=== PATIENT | male | born 1945 | race Caucasian/White ===

== ENCOUNTER 2024-12-18 13:34 | Outpatient (AMB) | payer MEDICARE, SELFPAY ==
--- OUTSIDE RECORDS SUMMARY | 2024-12-13 16:00 | XMS_ITS | Encounter Summary ---
Author Organization [facility] Address [address] [place] [address] Care Team Providers Care Automotive Maintenance Technician Name Role Phone Estefania Lozano MD Primary Care Provider [phone] Reason for Visit * Reason Comments Pulmonary Fibrosis 6 mth f/u Pulmonary Fibrosis Encounter Details Date Type Department Care Team (Late st Contact Info) Description 12/13/2024 4:00 PM EDT Office Visit Pulmonolgy [place] [address] [place] [address] Raghu Kunz MD [address] [place] [address] Pulmonary fibrosis (CMS/HCC V24, CMS/HCC V28) (Primary Dx); CAROLYN (obstructive sleep apnea); Severe aortic stenosis Social History Tobacco Use Types Packs/Day Years Used Date Smoking Tobacco: Former Smokeless Tobacco: Never Alcohol Use Standard Drinks/Week Comments Not Currently 0 (1 standard drink = 0.6 oz pur e alcohol) Sex and Gender Information Value Date Recorded Sex Assigned at Male 06/27/2024 9:52 AM EDT Legal Sex Male 11:16 PM EST Gender Identity Male 06/27/2024 9:52 AM EDT Sexual Orientation Straight 06/27/2024 9: 52 AM EDT documented as of this encounter Last Filed Vital Signs Vital Sign Reading Time Taken Comments Blood Pressure 120/64 12/13/2024 4:10 PM EDT Pulse 56 12/13/2024 4:10 PM EDT Temperature 36.3 C (97.4 F) 12/13/2024 4:10 PM EDT Respiratory Rate 16 12/13/2024 4:10 PM EDT Oxygen Saturation 98% 12/13/2024 4:10 PM EDT Inhaled Oxygen Concentration - - Weight - - Height - - Body Mass Index - - documented in this encounter Progress Notes * Raghu Kunz MD - 12/13/2024 4:00 PM EDT ADULT PULMONARY CONSULT CHIEF COMPLAINT or REASON FOR CONSULTATION: Pulmonary Fibrosis (6 mth f/u Pulmonary Fibrosis) HISTORY OF PRESENT ILLNESS: Aydin Bonilla is a 79 y.o. years old, male with a history of lung scarring and sleep apnea. He reports no significant change in his condition compared to the previous year, maintaining a general sense of well-being. He has no chronic cough or wheezing. Activities limited by general was debility with knee pain rather then SOB. I last saw him 6 months ago, he had a repeat chest CT scan thatshows stable findings. The patient is generally doing a lot better since he had a the significant weight loss with the Ozempic ALLERGIES: Allergies Allergen Reactions Amoxicillin Swelling Quinapril Swelling ACTIVE MEDICATIONS: Outpatient Medications Marked as Taking for the 12/13/24 encounter (Office Visit) with Raghu Kunz MD Medication Sig Dispense Refill acetaminophen-codeine (TYLENOL #3) 300-30 mg per tablet Take 1 tablet by mouth 1 (one) time each day if needed for severe pain. Max Daily Amount: 1 tablet 5 tablet 0 amLODIPine (NORVASC) 5 mg tablet Take 1 tablet (5 mg total) by mouth 1 (one) time each day. 90 tablet 1 aspirin 81 mg EC tablet Take 1 tablet (81 mg total) by mouth 1 (one) time each day. atorvastatin (LIPITOR) 40 mg tablet Take 1 tablet (40 mg total) by mouth 1 (one) time each day. 90 each 1 blood sugar diagnostic (FreeStyle Lite Strips) test strip TEST BLOOD GLUCOSE EVERY DAY 100 strip 0 blood-glucose meter kit Inject 1 each into the skin 2 (two) times a day. CHOLECALCIFEROL, VITAMIN D3, ORAL Take by mouth 1 (one) time each day. cyanocobalamin (VITAMIN B-12) 1,000 mcg tablet Take 1 tablet (1,000 mcg total) by mouth 1 (one) time each day. donepeziL (ARICEPT) 10 mg tablet Take 1 tablet (10 mg total) by mouth 1 (one) time each day. ferrous sulfate (FeroSuL) 325 mg (65 mg elemental iron) tablet Take 1 tablet (325 mg total) by mouth 1 (one) time each day. 90 tablet 1 folic acid (FOLVITE) 1 mg tablet Take 1 tablet (1,000 mcg total) by mouth 1 (one) time each day. 90tablet 1 freestyle (FreeStyle Lancets) 28 gauge lancets Inject 1 Lancet into the skin once a day. Freestyle lancets or whichever is covered by insurance 100 each 3 memantine (NAMENDA) 10 mg tablet Take 1 tablet (10 mg total) by mouth 2 (two) times a day. metoprolol succinate (TOPROL-XL) 25 mg 24 hr tablet TAKE 1 TABLET BY MOUTH DAILY 90 tablet 1 pen needle, diabetic 32 gauge x 5/32 needle 1 each by Other route 1 (one) time each day. semaglutide (Ozempic) 1 mg/dose (4 mg/3 mL) injection pen Inject 1 mg under the skin 1 (one) time per week. 9 mL 1 UNABLE TO FIND Inhale by mouth. Med Name: CPAP UNABLE TO FIND by Other route 2 (two) times a day. Med Name: FreeStyle Control Solution PROVIDER ATTESTS THAT THE MEDICATION LIST WAS OBTAINED, REVIEWED AND UPDATED. REVIEW OF SYSTEMS: GENERAL: + 100 lb less in past few yr ENT: no snoring Eye: RESPIRATORY: + cough, wheezing and dyspnea CARDIOVASCULAR: No chest pain, leg swelling or palpitations GI: No abdominal discomfort, no GERD MUSCULOSKELETAL: +backpain, + knee pain HEMATOLOGY/LYMPHOLOGY No prolonged bleeding, easy bruisability ENDOCRINE: no DM NEURO: No focal weakness : Psych: no depression PAST MEDICAL HISTORY: Patient Active Problem List Diagnosis Date Noted CKD (chronic kidney disease) stage 4, GFR 15-29 ml/min ([facility] V24, [facility] V28) 10/17/2024 Spondylosis of lumbar region without myelopathy or radiculopathy 01/28/2024 HTN (hypertension) 01/28/2024 Pulmonary fibrosis (CMS/[facility] V24, CMS/[facility] V28) 06/14/2023 CKD (chronic kidney disease) stage 3, GFR 30-59 ml/min ([facility] V24, [facility] V28) 06/14/2023 Mild cognitive impairment 12/04/2022 Other specified anemias 01/09/2022 Anemia in chronic kidney disease 12/23/2021 Thoracic aortic aneurysm without rupture ([facility] V24) 12/11/2020 PLMD (periodic limb movement disorder) 11/06/2018 Microalbuminuria 07/01/2018 Benign prostatic hyperplasia 12/28/2017 Lumbar spondylosis 10/21/2017 Primary osteoarthritis of both knees 10/21/2017 Depressive disorder 10/04/2017 Morbid obesity ([facility] V24, [facility] V28) 05/27/2017 Obstructive sleep apnea syndrome 05/27/2017 Severe aortic stenosis 05/27/2017 Hyperlipidemia 05/06/2017 Polyarthralgia 05/06/2017 Type 2 diabetes mellitus without complication ([facility] V24, [facility] V28) 04/01/2017 Type 2 diabetes mellitus with renal manifestations ([facility] V24, [facility] V28) 04/01/2017 Past Surgical History: Procedure Laterality Date OTHER SURGICAL HISTORY PROCEDURE: HISTORICAL MELANOMA FAMILY HISTORY: Family History Problem Relation Name Age of Onset Arthritis Mother Arthritis Brother OCCUPATION OR OCCUPATION EXPOSURE: SOCIAL HISTORY Social History Socioeconomic History Marital status: Spouse name: Not on file Number of children: Not on file Years of education: Not on file Highest education level: Not on file Occupational History Not on file Tobacco Use Smoking status: Former Smokeless tobacco: Never Substance and Sexual Activity Alcohol use: Not Currently Drug use: Never Sexual activity: Not on file Other Topics Concern Not on file Social History Narrative IMMUNIZATION: Immunization History Administered Date(s) Administered COVID-19 (Pfizer/Comirnaty) 12yo and older 02/05/2024 Influenza Quadravalent, 0.5ml (Fluzone High-dose) 65yo and older 01/10/2021 Influenza trivalent, 0.5mL (Fluzone High-dose) 65yo and older 12/23/2016, 01/24/2020, 01/02/2022, 02/16/2023 Influenza, Unspecified 01/10/2021 simplifyMD SARS-CoV-2 COVID-19, mRNA, LNP-S, preservative free 05/19/2020, 06/10/2020, 01/10/2021, 08/01/2021, 01/20/2022 Pneumococcal conjugate 13 valent (Prevnar 13, PCV13) 2mo and older 06/29/2018 Pneumococcal polysaccharide 23 valent (Pneumovax 23) 2yo and older 12/19/2019 Tdap Tetanus diptheria acellular pertussis (Boostrix; Adacel) 7yo and older 06/29/2018 PHYSICAL EXAM: Visit Vitals BP 120/64 (BP Location: Left arm, Patient Position: Sitting, BP Cuff Size: Adult) Pulse 56 Temp 36.3 ??C (97.4 ??F) (Temporal) Resp 16 SpO2 98% Smoking Status Former General- looks older then his stated age- in walker with , obese Heent- no JVD or stridor EYES: PERRL, conjunctiva and sclera normal NOSE/SINUS: negative MOUTH/THROAT: no erythema or exudates NECK: no stridor HEART: regular rate, regular rhythm and 3+ murmur LUNG: slight crackle at bases LYMPH NODES: grossly normal ABDOMEN: Bowel sounds normoactive, no bruits, soft, non-tender EXTREMITIES: No edema bilaterally. No clubbing NEURO: Awake, alert and oriented x 3 SKIN: negative DIAGNOSTIC DATA: 0219 best BIPAP 13/8 CARDIOPULMONARY TEST: Last Pulmonary function Test showed: 11/19/2023 Spirometry FEV1 is 90% normal, FVC 68% normal, FEV1/FVC ratio is decreased, no improvement in FEV1 post bronchodilators, MVV is decreased at 44% predicted. Lung volume TLC 62% normal, RV is 56% normal. Diffusion DLCO is 51% normal, DLCO/VA is 96% normal. RADIOLOGIST IMAGIN07/2024 FINDINGS: Base of neck: The thyroid and base of the neck are within normal limits. Mediastinum: The heart is normal in size, small pericardial effusion. No mediastinal lymphadenopathy. Thoracic aorta measures 4.2 cm at the right pulmonary artery. Moderate atherosclerosis of the thoracic aorta. Lungs: Evaluation of the lung parenchyma demonstrates diffuse subpleural fine linear interstitial thickening throughout the lung parenchyma. Probable small areas of honeycombing within the lateral right middle lobe and anterolateral/posterior right lower lobe. Faint groundglass attenuation in the medial right middle lobe. Mild diffuse traction bronchiectasis throughout the lung parenchyma. Scattered 1 to 2 mm pulmonary nodules. The trachea and mainstem bronchi are patent. Upper Abdomen: Limited visualization of the extreme upper abdomen demonstrates a right upper pole 3.5 cm renal cyst. Right midpole 1.8 cm cyst. MSK: Soft tissues are normal. Moderate degenerative changes of the thoracic spine. IMPRESSION: 1. 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 2. Thoracic aorta is aneurysmal measuring 4.2 cm. ASSESSMENT: ICD-10-CM ICD-9-CM 1. Pulmonary fibrosis (CMS/HCC V24, CMS/HCC V28) J84.10 515 2. CAROLYN (obstructive sleep apnea) G47.33 327.23 PLAN: Main limiting factor is knee pain. The repeat chest CT scan shows stable fibrosis. The patient has no clubbing and given the stability, this is unlikely to be IPF. Treatment is mostly supportive. Thepatient will follow-up in 6 months, he is compliant with CPAP and cardiology following him for his moderate to severe aortic stenosis - Follow up with Estefania Lozano MD for the other co-morbilities. - I spend 31 Minutes on this visit. The patient was educated about his problems, where assessment and plan was reviewed and explained, All questions were answered. This includes: Preparing to see the patient, obtaining and/or reviewing separately obtained history, performing a medically appropriate exam, ordering medications, tests, or procedures, documenting clinical information in the electronic health record, and independently interpreting results. RETURN TO THE NEXT VISIT: Based on physical exam, symptomatology, tests requested and baseline pulmonary evaluation/disease, I instructed the patient to come back to see me in 6 mths for reevaluation after the test has been done or earlier if the patient needed. Thanks Estefania Lozano MD for allowing me to have the opportunity to assist in the care of this patient. documented in this encounter Plan of Treatment Upcoming Encounters Date Type Department Care Team (Late st Contact Info) Description 02/01/2025 3:00 PM EDT Office Visit Orthopedic Surgery - [place] [address] [phone] Gopi Bueno, DPM [address] [address] 02/12/2025 3:30 PM EST Ancillary Procedure [facility] [address] [place] [address] 02/14/2025 9:50 AM EST Office Visit Gastroenterology - [place] [address] [place] [address] Libby Andrade PA [address] [place] [address] 03/06/2025 1:10 PM EST Office Visit [facility] Card[facility] [address] [place] [address] Jorge Delgadillo NP [address] [place] [address] [address] [place] [address] 03/12/2025 8:30 AM EST Ancillary Procedure [facility] Cardiology [facility] [address] [place] [address] 03/19/2025 10:00 AM EST Ancillary Procedure [facility] [address] [place] [address] 05/04/2025 1:00 PM EST Office Visit Vascular Surgery - [place] [address] [place] [address] Mihir Bonilla MD [address] [place] [phone] 05/10/2025 12:00 PM EST Office Visit Internal Medicine - [address] [phone] Estefania Lozano MD [address] [place] [address] 06/13/2025 2:30 PM EST Office Visit Pulmonolgy - [place] [address] [place] [phone] Raghu Kunz MD [address] [facility] [address] [place] [address] 07/24/2025 2:15 PM EDT Office Visit Nephrology - [facility] [address] [place], [place] [phone] Celio Tipton MD [address] [address] documented as of this encounter Visit Diagnoses Diagnosis Pulmonary fibrosis (CMS/HCC V24, CMS/HCC V28)- Primary Postinflammatory pulmonary fibrosis CAROLYN (obstructive sleep apnea) Obstructive sleep apnea (adult) (pediatric) Severe aortic stenosis Aortic valve disorders documented in this encounter Care Teams Automotive Maintenance Technician Relationship Specialty Start Date End Date Estefania Lozano MD [address] [facility] [place], [place] PCP - General Internal Medicine 11/07/24 documented as of this encounter
--- NOTE | 2024-12-18 13:37 | A.OFFVIS_ITS ---
Vital Signs 12/18/24 13:45 Height 5 ft 6 in Weight 190 lb BMI 30.7 BP 126/78 Blood Pressure Location Lt brachial Position Sitting Intake Visit Reasons: Follow up, Follow Up Accompanied by: Spouse Allergies amoxicillin Allergy (Unknown, Verified 12/18/24 13:42) Unknown Medication List - Last Reconciled 12/18/24 by Kiera Guadalupe CNP amlodipine 5 mg PO DAILY atorvastatin 40 mg PO DAILY donepezil 10 mg PO DAILY folic acid 1 mg PO DAILY memantine (Namenda) 10 mg PO BID 90 days metoprolol succinate ER 25 mg PO DAILY semaglutide (Ozempic) 1 mg subcut QWEEK HPI Comments Details: 79-year-old man with hypertension, diabetes, chronic low back pain and R knee pain from OA, and MCI with forgetfulness since 2019. He lives at home with his and has a MANAGER SOLUTION, no safety issues. He was doing okay. He lost some weight and was feeling much better. Memory was stable. He thought memory may be slightly better even. He was walking with walker, no falls. Mood was okay. Sleep was okay. [facility] Medical History (Updated 12/18/24 @ 13:42 by Kiera Guadalupe CNP) CAROLYN on CPAP Low back pain Review of Systems Const Denies chills, Denies daytime sleepiness, Denies difficulty sleeping, Denies fatigue, Denies fever(s), Denies frequent falls, Denies headache(s), Denies increased appetite, Denies poor appetite, Denies snoring, Denies weakness, Denies weight gain and Denies weight loss Eyes Denies loss of vision ENT Denies vertigo, Denies dizziness, Denies headache(s) and Denies neck pain Card Denies chest pain at rest, Denies chest pain with activity, Denies syncope, Denies leg edema, Denies palpitations, Denies dyspnea and Denies dyspnea on exertion Resp Denies cough, Denies dyspnea, Denies dyspnea on exertion and Denies snoring GI Denies abdominal pain, Denies constipation, Denies heartburn, Denies diarrhea and Denies nausea Denies urinary frequency, Reports urinary incontinence and Denies urinary ur gency Musc Denies abnormal gait, Reports back pain, Reports myalgias, Reports arthralgias, Denies neck pain, Denies numbness and Denies tingling Neuro Denies abnormal gait, Denies vertigo, Denies dizziness, Denies syncope, Denies frequent falls, Denies headache(s), Denies lack of coordination, Denies loss of vision, Reports memory loss, Denies numbness, Denies Other visual disturbances, Denies restless legs, Denies seizure-like activity, Denies tingling, Denies paresthesias, Denies tremor(s) and Denies weakness Psych Denies anxiety, Denies depression, Denies auditory hallucinations, Reports memory loss and Denies visual hallucinations Endo Denies fatigue and Denies palpitations Physical Exam Const Other: General Appearance:? normal, in no acute distress. Heart:? S1, S2 normal, no murmurs. Lungs:? clear anteriorly and posteriorly. Musculoskeletal:? normal. Extremities:? no edema. Psych:? alert, as below. Neuro Other: Abnormal Neurological Findings:?MMSE 22/30.?Walking with walker. Mental Status: alert, as below. Cranial Nerves: Pupils are equal, round, and reactive to light. External ocular muscles are intact. Visual scherer are full, no ptosis. Face is symmetrical, no facial weakness or droop. Facial sensations are normal. Tongue protrudes in midline. Palate elevates symmetrically. Shoulder shrugging is normal Motor Examination: Normal muscle tone, bulk and strength. No atrophy or fasciculations. No drift of the extended upper extremities. DTR 2+. Plantars are flexor. Sensory Exam: Normal light touch, temperature, pinprick, vibration, and joint- position sensations. Rhomberg sign is absent. Coordination: No ataxia. No titubation. Gait Exam: With walker. Cerebellar Signs: [id number] is okay. Extrapyramidal System: No tremor, rigidity with normal facial expressions. No bradykinesia. No bradyphrenia. Normal arm swing and posture. No propulsion or retropulsion. Speech: Normal. MMSE Level of Consciousness: Alert. Orientation: Knows correct year, month, and season. Does not know date or day. Knows correct city, county and state. Knows correct location and floor. Registration: Able to register 3 objects. Attention: Serial 7's performed accurately to 79 Recall: Able to recall 0 out of 3 objects. Language: Normal spontaneous speech, fluency, repetition, naming, comprehension, reading, and writing. Total Score: 22/30. Results Reviewed Results Reviewed: 10/10/18 EEG- Low voltage fast EEG CT shows age related atrophy and mild microvascular white matter changes Assessment & Plan Assessment & Plan (1) MCI (mild cognitive impairment): Code(s): G31.84 - Mild cognitive impairment of uncertain or unknown etiology Category: Medical Plan: Continue donepezil 10mg 1 tablet at bedtime. Continue memantine 10mg 1 tablet twice a day. Medications: New donepezil 10 mg PO BEDTIME 90 tabs 1RF 90 days Coding Level of Care Code Est Pt Level 4 (95037) Diagnoses MCI (mild cognitive impairment) G31.84
[2024-12-18 13:45] VITALS: BP 126/78; BMI 30.7
--- OUTSIDE RECORDS SUMMARY | 2024-12-18 15:48 | XMS_ITS | Clinical Summary ---
Author Organization [facility] Facility Address [address] [place] [id number] Care Team Providers Care Door Trimmer Name Role Phone Mj Silva Primary Care Provider [phone] Allergies Active Allergy Reactions Criticality Noted Date Comments Amoxicillin Swelling High 07/16/2020 Quinapril Swelling High 07/16/2020 Medications metoprolol tartrate (LOPRESSOR) 50 MG tablet Take 25 mg by mouth in the morning and 25 mg in the evening. 10/02/2021 Active memantine (NAMENDA) 10 MG tablet Take 10 mg by mouth in the morning and 10 mg in the evening. 10/12/2021 Active liraglutide (VICTOZA) 18 MG/3ML injection Inject 0.6 mg under the skin Active glipiZIDE (GLUCOTROL XL) 2.5 MG 24 hr tablet TAKE 1 TABLET BY MOUTH DAILY WITH FOOD. NEVER TAKE ON AN EMPTY STOMACH. 09/26/2021 Active atorvastatin (LIPITOR) 40 MG tablet 10/14/2021 Active cetirizine (ZyrTEC) 10 MG tablet Take 10 mg by mouth 1 (one) time each day 09/27/2021 Active amLODIPine (NORVASC) 5 MG tablet 10/13/2021 Active cyanocobalamin (VITAMIN B-12) 1000 MCG tablet Take 1,000 mcg by mouth 1 (one) time each day Active aspirin (ST GEOVANNY) 81 MG EC tablet Take 81 mg by mouth 1 (one) time each day Active folic acid (FOLVITE) 1 MG tablet Take 1,000 mcg by mouth 1 (one) time each day 11/25/2021 Active donepezil (ARICEPT) 10 MG tablet Take 10 mg by mouth every night Active Active Problems Problem Noted Date Diagnosed Date Stage 3b chronic kidney disease 12/23/2021 Type 2 diabetes mellitus wit h diabetic chronic kidney disease 12/23/2021 Anemia in chronic kidney disease 12/23/2021 Thoracic aortic aneurysm without rupture 021 Periodic limb movement disorder 11/06/2018 Microalbuminuria 07/01/2018 Benign prostatic hyperplasia 12/28/2017 Overview (12/22/2021): Urology (12/24/17): Seen for BPH and rectal dysfunction. Overall doing well. Lumbar spondylosis 10/21/2017 Primary gonarthrosis, bilateral 10/21/2017 Depressive disorder 10/04/2017 History of malignant basal cell neoplasm of skin 06/07/2017 Overview (12/22/2021): BCC right infraorbital rim (when the patient was about 28 years of age or 40+ years ago this was removed under local anesthesia without any adjunctive care. The scar is difficult to find suggesting a carcinoma versus melanoma the claims) Moderate aortic valve stenosis 05/27/2017 Morbid obesity 05/27/2017 Obstructive sleep apnea syndrome 05/27/2017 Overview (12/22/2021): [facility] Polysomnogram treatment study. Date 08/10/2018. Wt 243#; BMI 38; SE 41 % SM 46 %; spent 17 % of the study in REM. CPAP Failed to correct CAROLYN. Central apnea emergence noted. Pre-study ESS 6. 0/4 RLS symptoms. [facility] Polysomnogram treatment study. Date 10/22/2018. Wt 245#; BMI 38; SE 73 % SM 80 %; spent 29 % of the study in REM. On BiPAP @ 22/11; RDI 2.3 (AHI 2.1), Central apneas 2; Obstructive apneas 0; Mixed apneas 0; hypopneas 10; RERAs 1; and, average oxygen saturation was 93%. For the entire study, PLMs ~34. Pre-study ESS 2. 0/4 RLS symptoms. Hyperlipidemia 05/06/2017 Hypertensive disorder 05/06/2017 Multiple joint pain 05/06/2017 Type 2 diabetes mellitus without complication Overview (12/22/2021): A1c (03/09/18): 8.3. Endocrinology (12/07/17): Continue Januvia, metformin, start glipizide 5 mg, 2 tablets twice a day. Endocrinology (10/05/17) sees: Continue Januvia, metformin. Increase glipizide 2.5 mg 4 tablets once a day Endocrinology (06/25/17): Seen by Dr. Maris Crockett. For diabetes, continue Januvia 100 mg daily, increase glipizide 2.5 mg 3 tabs once a day, metformin 500 mg 1 tab qid. Encounters Date Type Department Care Team Description 10/05/2024 Orders Only [facility]. [address] [place] [id number] Celio Tipton MD from Last 3 Months Immunizations Immunization Administration Dates Next Due Influenza Split High Dose Preservative Free IM 1 ,12/23/2016 Influenza, Unspecified 01/10/2021 Pneumococcal Conjugate 13-Valent 06/29/2018 Pneumococcal Polysaccharide 12/19/2019 Tdap 06/29/2018 Social History Tobacco Use Types Packs/Day Years Used Date Smoking Tobacco: Never Smokeless Tobacco: Never Tobacco Cessation:Counseling Given: Not Answered Alcohol Use Standard Drinks/Week Comments Not Currently 0 (1 standard drink = 0.6 oz pur e alcohol) Sex and Gender Information Value Date Recorded Sex Assigned at Not on file Legal Sex Male 10:38 AM EDT Gender Identity Not on file Sexual Orientation Not on file Last Filed Vital Signs Vital Sign Reading Time Taken Comments Blood Pressure - - Pulse - - Temperature - - Respiratory Rate - - Oxygen Saturation - - Inhaled Oxygen Concentration - - Weight 85.3 kg (188 lb) 12/23/2021 1:25 PM EDT Height - - Body Mass Index - - Plan of Treatment Health Maintenance Due Date Last Done Comments Diabetes: Ophthalmology Exam 10/16/2021 Diabetes: Pedal Pulse Checked 10/16/2021 Diabetes: Sensory Foot Exam 10/16/2021 Diabetes: Visual Foot Exam 10/16/2021 Diabetes: Hemoglobin A1C 11/27/2021 08/27/2021 Influenza Vaccine (#1) 2024 1, 01/24/2020, 12/23/2016 Pneumococcal Vaccine: 50+ Years Completed 12/19/2019, 06/29/2018 Hepatitis B Vaccine Aged Out No longe r eligible based on patient's age to complete this topic Procedures Procedure Name Priority Date/Time Associated Diagnosis Comments PROTEIN / CREATININE RATIO, URINE Routine 10/05/2024 2:56 PM EDT PTH, INTACT Routine 10/05/2024 2:56 PM EDT CALCIUM Routine 10/05/2024 2:56 PM EDT CREATININE, SERUM Routine 10/05/2024 2:5 6 PM EDT ELECTROLYTE PANEL Routine 10/05/2024 2:5 6 PM EDT BUN Routine 10/05/2024 2:56 PM EDT PHOSPHATE ( PHOSPHORUS) Routine 10/05/2024 2:56 PM EDT from Last 3 Months Results * (ABNORMAL) Protein, Total, Random Urine w/Creatinine (Protein/Creat Ratio) (10/05/2024 2:56 PM EDT) Protein, Ur 58 mg/dL [facility] Urine Protein/Creati nine Ratio 0.34(H) <=0.20 mg/mg creat [facility] Creatinine, Urine 171.0 mg/dL [facility] 10/05/2024 2:56 PM EDT 10/05/2024 8:44 PM EDT us Celio Tipton MD LAB URINE ORDERABLES Final Resu lt [facility] [address] [place] [address] * (ABNORMAL) BUN (10/05/2024 2:56 PM EDT) BUN 31(H) 5 - 25 mg/dL [facility] 10/05/2024 2:56 PM EDT 10/05/2024 6:03 PM EDT us Celio Tipton MD LAB BLOOD ORDERABLES Final Resu lt [facility] [address] [place] [address] * Phosphorus (10/05/2024 2:56 PM EDT) Pathologist [facility] Phosphorus 2.9 2.5 - 4.5 mg/dL [facility] 10/05/2024 2:56 PM EDT 10/05/2024 6:03 PM EDT us Celio Tipton MD LAB BLOOD ORDERABLES Final Resu lt Performing Organization Address City/[facility]/ZIP Co de Phone Number [facility] [address] [place] [address] * PTH, Intact (10/05/2024 2:56 PM EDT) Pathologist [facility] PTH 81.7 18.5 - 88.0 pcg/mL [facility] 10/05/2024 2:56 PM EDT 10/05/2024 6:03 PM EDT us Celio Tipton MD LAB BLOOD ORDERABLES Final Resu lt Performing Organization Address City/[facility]/ZIP Co de Phone Number [facility] [address] [place] [address] * (ABNORMAL) Creatinine, serum (10/05/2024 2:56 PM EDT) Creatinine Serum 2.21(H) 0.70 - 1.30 mg/dL [facility] eGFR 29(L) >=60 mL/min/1. 73m2 [facility] Comment:Calculation based on the Chronic Kidney Disease Epidemiology Collaboration (CKD-EPI) equation refit without adjustment for race. 10/05/2024 2:56 PM EDT 10/05/2024 6:03 PM EDT us Celio Tipton MD LAB BLOOD ORDERABLES Final Resu lt Performing Organization Address City/[facility]/ZIP Co de Phone Number [facility] [address] [place] [address] * Calcium (10/05/2024 2:56 PM EDT) Pathologist [facility] Calcium 8.6 8.5 - 10.5 mg/dL [facility] 10/05/2024 2:56 PM EDT 10/05/2024 6:03 PM EDT us eClio Tipton MD LAB BLOOD ORDERABLES Final Resu lt Performing Organization Address City/[facility]/ZIP Co de Phone Number [facility] [address] [place] [address] * Electrolyte panel (10/05/2024 2:56 PM EDT) Pathologist [facility] Sodium 141 133 - 145 mmol/L [facility] Potassium 4.0 3.5 - 5.5 mmol/L [facility] Chloride 109 96 - 110 mmol/L [facility] Bicarbonate (CO2) 26 21 - 32 mmol/L [facility] Anion Gap 6 3 - 11 [facility] 10/05/2024 2:56 PM EDT 10/05/2024 6:03 PM EDT us Celio Tpiton MD LAB BLOOD ORDERABLES Final Resu lt [facility] [address] [place] [address] from Last 3 Months Insurance Medicare [facility] Medicare [facility] Care Teams Door Trimmer Relationship Specialty Start Date End Date Mj Silva PCP - General Internal Medicine 10/16/21
--- OUTSIDE RECORDS SUMMARY | 2024-12-18 15:48 | XMS_ITS | Clinical Summary ---
Author Organization [address] [place] [address] [place] [phone] Phone Care Team Providers Care Corn Grinder Name Role Phone Estefania Lozano MD Primary Care Provider [phone] Allergies Active Allergy Reactions Criticality Noted Date Comments Amoxicillin Swelling High 07/16/2020 Quinapril Swelling High 07/16/2020 Medications aspirin 81 mg EC tablet Take 1 tablet (81 mg total) by mouth 1 (one) time each day. Active donepeziL (ARICEPT) 10 mg tablet Take 1 tablet (10 mg total) by mouth 1 (one) time each day. 0 Active memantine (NAMENDA) 10 mg tablet Take 1 tablet (10 mg total) by mouth 2 (two) times a day. 2 Active blood-glucose meter kit Inject 1 each into the skin 2 (two) times a day. 1 Active pen needle, diabetic 32 gauge x 5/32 needle 1 each by Other route 1 (one) time each day. 3 Active CHOLECALCIFEROL , VITAMIN D3, ORAL Take by mouth 1 (one) time each day. Active UNABLE TO FIND Inhale by mouth. Med Name: CPAP Active cyanocobalamin (VITAMIN B-12) 1,000 mcg tablet Take 1 tablet (1,000 mcg total) by mouth 1 (one) time each day. Active UNABLE TO FIND by Other route 2 (two) times a day. Med Name: FreeStyle Control Solution Active atorvastatin (LIPITOR) 40 mg tablet Take 1 tablet (40 mg total) by mouth 1 (one) time each day. 90 each 1 5 Active blood sugar diagnostic (FreeStyle Lite Strips) test strip TEST BLOOD GLUCOSE EVERY DAY 100 strip 5 Active acetaminophen-c odeine (TYLENOL #3) 300-30 mg per tablet Take 1 tablet by mouth 1 (one) time each day if needed for severe pain. Max Daily Amount: 1 tablet 5 tablet 5 Active amLODIPine (NORVASC) 5 mg tablet Take 1 tablet (5 mg total) by mouth 1 (one) time each day. 90 tablet 1 5 Active metoprolol succinate (TOPROL-XL) 25 mg 24 hr tablet TAKE 1 TABLET BY MOUTH DAILY 90 tablet 1 5 Active freestyle (FreeStyle Lancets) 28 gauge lancetsIndicati ons:Type 2 diabetes mellitus with stage 4 chronic kidney disease, without long-term current use of insulin ([facility] V24, [facility] V28) Inject 1 Lancet into the skin once a day. Freestyle lancets or whichever is covered by insurance 100 each 3 5 Active semaglutide (Ozempic) 1 mg/dose (4 mg/3 mL) injection penIndications: Type 2 diabetes mellitus with stage 4 chronic kidney disease, without long-term current use of insulin ([facility] V24, [facility] V28) Inject 1 mg under the skin 1 (one) time per week. 9 mL 1 5 Active ferrous sulfate (FeroSuL) 325 mg (65 mg elemental iron) tablet Take 1 tablet (325 mg total) by mouth 1 (one) time each day. 90 tablet 1 5 Active folic acid (FOLVITE) 1 mg tablet Take 1 tablet (1,000 mcg total) by mouth 1 (one) time each day. 90 tablet 1 5 Active Active Problems Problem Noted Date Diagnosed Date CKD (chronic kidney disease) stage 4, GFR 15-29 ml/min ([facility] V24, [facility] V28) 10/17/2024 Spondylosis of lumbar region without myelopathy or radiculopathy 01/28/2024 HTN (hypertension) 01/28/2024 Assessment & Plan (06/20/2024 5:53 PM EDT): Follow low-sodium diet. Continue current treatment of amlodipine, metoprolol. Assessment & Plan (05/17/2024 1:15 PM EST): Blood pressure management appears stable. No changes to the current medication regimen are necessary. Pulmonary fibrosis ([facility] V24, [facility] V28) CKD (chronic kidney disease) stage 3, GFR 30-59 ml/min ([facility] V24, [facility] V28) 06/14/2023 Mild cognitive impairment 12/04/2022 Other specified anemias 01/09/2022 Anemia in chronic kidney disease 12/23/2021 Thoracic aortic aneurysm without rupture ([facility] V24) 12/11/2020 Overview (06/17/2023): Last Assessment & Plan: 4.2 cm on his most recent echocardiogram from December 2022. Continue periodic surveillance by echo Assessment & Plan (08/17/2024 3:23 PM EDT): Will repeat echocardiogram in 6 months. Most recent measurement revealed dilatation to be 4.3 cm. Assessment & Plan (05/17/2024 1:15 PM EST): The thoracic aortic aneurysm has shown no oil changer time. Given the stability, it is not necessary to continue regular monitoring at this time. However, we will incidentally get an aneurysm measurement with surveillance echoes performed for aortic stenosis anyways. PLMD (periodic limb movement disorder) 9 Microalbuminuria 07/01/2018 Benign prostatic hyperplasia 12/28/2017 Overview (06/17/2023): Urology (12/24/17): Seen for BPH and rectal dysfunction. Overall doing well. Urology (12/24/17): Seen for BPH and rectal dysfunction. Overall doing well. Lumbar spondylosis 10/21/2017 Assessment & Plan (06/20/2024 5:53 PM EDT): Continue follow-up with physiatry. He will use acetaminophen as needed for pain. I have given him 5 tablets of acetaminophen with codeine only to use when he is in severe pain. Side effects of medication discussed in detail with him. Primary osteoarthritis of both knees 10/21/2017 Depressive disorder 10/04/2017 Morbid obesity ([facility] V24, [facility] V28) 2017 Obstructive sleep apnea syndrome 05/27/2017 [place] (06/17/2023): [facility] [place]. Date 08/10/2018. Wt 243#; BMI 38; SE 41 % SM 46 %; spent 17 % of the study in REM. CPAP Failed to correct CAROLYN. Central apnea emergence noted. Pre-study ESS 6. 0/4 RLS symptoms. [facility] Polysomnogram treatment study. Date 10/22/2018. Wt 245#; BMI 38; SE 73 % SM 80 %; spent 29 % of the study in REM. On BiPAP @ 13/8; RDI 2.3 (AHI 2.1), Central apneas 2; Obstructive apneas 0; Mixed apneas 0; hypopneas 10; RERAs 1; and, average oxygen saturation was 93%. For the entire study, PLMs ~34. Pre-study ESS 2. 0/4 RLS symptoms. [facility] [place]. Date 08/10/2018. Wt 243#; BMI 38; SE 41 % SM 46 %; spent 17 % of the study in REM. CPAP Failed to correct CAROLYN. Central apnea emergence noted. Pre-study ESS 6. 0/4 RLS symptoms. [facility] Polysomnogram treatment study. Date 10/22/2018. Wt 245#; BMI 38; SE 73 % SM 80 %; spent 29 % of the study in REM. On BiPAP @ 13/8; RDI 2.3 (AHI 2.1), Central apneas 2; Obstructive apneas 0; Mixed apneas 0; hypopneas 10; RERAs 1; and, average oxygen saturation was 93%. For the entire study, PLMs ~34. Pre-study ESS 2. 0/4 RLS symptoms. Severe aortic stenosis 05/27/2017 Overview (05/17/2024): Most recent echocardiogram from January 2024 showed: Left ventricle cavity size is normal. Mild, concentric left ventricular hypertrophy with sigmoid septum-a benign variant most likely. There is normal left ventricular regional wall motion. Left ventricular systolic function is in the normal range with an ejection fraction of 65-70%. Right ventricle cavity is normal. Right ventricular systolic function is normal. Aortic valve demonstrates severe stenosis. See measurements below. There is trace regurgitation. The ascending aorta is dilated (4.3 cm). Compared to prior echocardiogram from 12/15/2022, findings are unchanged. Stable, severe aortic stenosis. Normal biventricular systolic function. Assessment & Plan (08/17/2024 3:23 PM EDT): We will repeat echocardiogram in 6 months. Orders: Transthoracic echocardiogram (TTE) complete with PRN contrast, bubble, strain, and 3D order panel; Future Assessment & Plan (05/17/2024 1:15 PM EST): Patient is very limited at baseline so it is difficult to gauge whether or not he is developing symptoms or if symptoms are getting worse. It does not sound like he is decompensated in any way from a cardiac standpoint. So at this point, we will proceed with 6-month surveillance echoes. 1 has been ordered for July of this year. Hyperlipidemia 05/06/2017 Overview (06/17/2023): Last Assessment & Plan: Well-controlled lipid profile on current dose statin. Continue the same Assessment & Plan (08/17/2024 3:23 PM EDT): Lipid panel from 02/2024 reveals an LDL of 47 and triglycerides of 100. Please continue on the atorvastatin 40 mg p.o. daily. Assessment & Plan (06/20/2024 5:53 PM EDT): Follow low-cholesterol diet. Continue atorvastatin. Polyarthralgia 05/06/2017 Type 2 diabetes mellitus wit hout complication ([facility] V24, [facility] V28) 04/01/2017 Overview (06/17/2023): A1c (03/09/18): 8.3. Endocrinology (12/07/17): Continue Januvia, metformin, start glipizide 5 mg, 2 tablets twice a day. Endocrinology (10/05/17) sees: Continue Januvia, metformin. Increase glipizide 2.5 mg 4 tablets once a day Endocrinology (06/25/17): Seen by Dr. Maris Crockett. For diabetes, continue Januvia 100 mg daily, increase glipizide 2.5 mg 3 tabs once a day, metformin 500 mg 1 tab qid. Type 2 diabetes mellitus wit h renal manifestations ([facility] V24, [facility] V28) 04/01/2017 Overview (06/17/2023): A1c (03/09/18): 8.3. Endocrinology (12/07/17): Continue Januvia, metformin, start glipizide 5 mg, 2 tablets twice a day. Endocrinology (10/05/17) sees: Continue Januvia, metformin. Increase glipizide 2.5 mg 4 tablets once a day Endocrinology (06/25/17): Seen by Dr. Maris Crockett. For diabetes, continue Januvia 100 mg daily, increase glipizide 2.5 mg 3 tabs once a day, metformin 500 mg 1 tab qid. Assessment & Plan (06/20/2024 5:53 PM EDT): Diabetic diet discussed. Continue current regimen of Ozempic. He has been followed by nephrology for CKD. Avoid NSAIDs. Orders: freestyle (FreeStyle Lancets) 28 gauge lancets; Inject 1 Lancet into the skin 2 (two) times a day. Resolved Problems Problem Noted Date Diagnosed Date Resolved Date Hypertensive disorder 05/06/20172024 Overview (06/17/2023): Last Assessment & Plan: Blood pressure well controlled. Continue BB and CCB at current dose and follow. Encounters Date Type Department Care Team Description 12/13/2024 4:00 PM EDT Office Visit [address] [phone] Raghu Kunz MD Pulmonary fibrosis ([facility] V24, [facility] V28) (Primary Dx); CAROLYN (obstructive sleep apnea); Severe aortic stenosis 11/28/[address] [phone] Raghu Kunz MD 11/24/[address] [phone] Raghu Kunz MD 11/07/2024 1:00 PM EDT [facility] [address] [place] [phone] Danelle Figueroa NP Hyperlipidemia, unspecified hyperlipidemia type (Primary Dx); Polyarthralgia; Obstructive sleep apnea syndrome; Hypertension, unspecified type; Morbid obesity ([facility] V24, [facility] V28); CKD (chronic kidney disease) stage 4, GFR 15-29 ml/min ([facility] V24, [facility] V28); Benign prostatic hyperplasia, unspecified whether lower urinary tract symptoms present; Anemia in chronic kidney disease, unspecified CKD stage; Type 2 diabetes mellitus without complication, without long-term current use of insulin ([facility] V24, [facility] V28); Microalbuminuria; Severe aortic stenosis 10/27/[address] [phone] Raghu Kunz MD 10/17/2024 2:15 PM EDT Office Visit [place] [place] [address] [facility] [place] [phone] Celio Tipton MD CKD (chronic kidney disease) stage 4, GFR 15-29 ml/min ([facility] V24, [facility] V28) (Primary Dx); Type 2 diabetes mellitus with stage 4 chronic kidney disease, without long-term current use of insulin ([facility] V24, [facility] V28); Hypertension, unspecified type from Last 3 Months Immunizations Name Administration Dates Next Due Influenza Quadravalent, 0.5m l (Fluzone High-dose) 65yo and older 01/10/2021 Influenza trivalent, 0.5mL ( Fluzone High-dose) 65yo and older 02/16/2023,01/02/2022,01/24/2020,12/23 Influenza, Unspecified 01/10/2021 [employer] SARS-CoV-2 COVID-19, mRNA, LNP-S, preservative free 01/20/2022,08/01/2021,01/10/2021,06/10,05/19/2020 Pneumococcal conjugate 13 va lent (Prevnar 13, PCV13) 2mo and older 06/29/2018 Pneumococcal polysaccharide 23 valent (Pneumovax 23) 2yo and older 12/19/2019 Tdap Tetanus diptheria acell ular pertussis (Boostrix; Adacel) 7yo and older 06/29/2018 Surgical History Surgery Date Site/Laterality Comments OTHER SURGICAL HISTORY PROCEDURE: HISTORICAL MELANOMA Medical History Medical History Date Comments HTN (hypertension) 05/06/2017 DX:HTN (hyper tension) Polyarthralgia 05/06/2017 DX:Polyarthralgi a Type 2 diabetes mellitus wit hout complication, without long-term current use of insulin ([facility] V24, [facility] V28) 04/01/2017 DX:Type 2 diabetes mellitus without complication, without long-term current use of insulin ([facility]) HLD (hyperlipidemia) 05/06/2017 DX:HLD (hyp erlipidemia) Moderate aortic stenosis 05/27/2017 DX:Mode rate aortic stenosis CAROLYN (obstructive sleep apnea) 05/27/2017 DX :CAROLYN (obstructive sleep apnea); COMMENT: CAPAP Morbid obesity ([facility] V24, [facility] V28) 05/27/2017 DX:Morbid obesity (HCC) History of basal cell carcinoma 06/07/2017 DX:History of basal cell carcinoma Osteoarthritis 10/04/2017 DX:Osteoarthriti s; COMMENT: Right knee Depression 10/04/2017 DX:Depression BPH (benign prostatic hyperplasia) 12/28/2017 DX:BPH (benign prostatic hyperplasia) Microalbuminuria 07/01/2018 DX:Microalbumin uria Type 2 diabetes mellitus wit h renal manifestations ([facility] V24, [facility] V28) 04/01/2017 DX:Type 2 diabetes mellitus with renal manifestations ([facility]); COMMENT: A1c (03/09/18): 8.3. Endocrinology (12/07/17): Continue Januvia, metformin, start glipizide 5 mg, 2 tablets twice a day. Endocrinology (10/05/17) sees: Continue Januvia, metformin. Increase glipizide 2.5 mg 4 tablets once a day Endocrinology (06/25/17): Seen by Dr. Maris Crockett. For diabetes, continue Januvia 100 mg daily, inc* Mild cognitive impairment 12/04/2022 DX:Mil d cognitive impairment Pulmonary fibrosis ([facility] V24, [facility] V28) 06/14/2023 DX:Pulmonary fibrosis ([facility]) Family History Medical History Relation Name Comments Arthritis Brother Arthritis Mother Relation Name Status Comments Brother Mother Social History Tobacco Use Types Packs/Day Years Used Date Smoking Tobacco: Former Smokeless Tobacco: Never Tobacco Cessation:Counseling Given: Not Answered Alcohol Use Standard Drinks/Week Comments Not Currently 0 (1 standard drink = 0.6 oz pur e alcohol) Sex and Gender Information Value Date Recorded Sex Assigned at Male 06/27/2024 9:52 AM EDT Legal Sex Male 11:16 PM EST Gender Identity Male 06/27/2024 9:52 AM EDT Sexual Orientation Straight 06/27/2024 9: 52 AM EDT Obstetrics History Last Filed Vital Signs Vital Sign Reading Time Taken Comments Blood Pressure 120/64 12/13/2024 4:10 PM EDT Pulse 56 12/13/2024 4:10 PM EDT Temperature 36.3 C (97.4 F) 12/13/2024 4:10 PM EDT Respiratory Rate 16 12/13/2024 4:10 PM EDT Oxygen Saturation 98% 12/13/2024 4:10 PM EDT Inhaled Oxygen Concentration - - Weight 90.1 kg (198 lb 11.2 oz) 11/07/2024 1:07 PM EDT Height 167.6 cm (5' 6 ) 08/17/2024 2:00 PM EDT Body Mass Index 32.07 08/17/2024 2:00 PM EDT Plan of Treatment Upcoming Encounters Date Type Department Care Team (Late st Contact Info) Description 02/01/2025 3:00 PM EDT Office Visit Orthopedic Surgery - [place] [address] [place] [phone] Gopi Bueno DPM [address] [place] [address] 02/12/2025 3:30 PM EST Ancillary Procedure [facility] [address] [facility] [address] [place] [address] 02/14/2025 9:50 AM EST Office Visit Gastroenterology - [place] [address] [place] [phone] Libby Andrade PA [address] [place] [address] 03/06/2025 1:10 PM EST Office Visit [facility] [address] [place] [phone] Jorge Delgadillo NP [address] [place] [address] [address] [place] [address] 03/12/2025 8:30 AM EST Ancillary Procedure [facility] [address] [place] [address] 03/19/2025 10:00 AM EST Ancillary Procedure [facility] [address] [facility] [address] [place] [address] 05/04/2025 1:00 PM EST Office Visit Vascular Surgery - [place] [address] [place] [address] Mihir Bonilla MD [address] [place] [address] 05/10/2025 12:00 PM EST Office Visit Internal Medicine - [address] [phone] Estefania Lozano MD [address] [place], [place] 06/13/2025 2:30 PM EST Office Visit Pulmonolgy - [place] [address] [facility] [address] [place] [phone] Raghu Kunz MD [address] [facility] [address] [place] [address] 07/24/2025 2:15 PM EDT Office Visit Nephrology - [address] [phone] Celio Tipton MD [address] [facility] [address] [place] [phone] Health Maintenance Due Date Last Done Comments Diabetes: Annual Foot Exam 09/05/1955 Zoster Vaccines (1 of 2) 09/05/1962 Social Influencers of Health Screening 03/21/2022 Medicare Annual Wellness Visit 02/17/2024 02/16/2023 Depression Screening 04/12/2024 02/16/2023 Falls Risk Assessment 06/13/2024 06/14/2023 Diabetes: Annual Urine Albumin-Creatinine Ratio (uACR) 08/09/2024 08/10/2023, 12/29/2022 Diabetes: Annual Retina Eye Exam 11/08/2024 11/09/2023 Diabetes: Blood Sugar Control Test (HGBA1C) 11/16/2024 08/16/2024, 02/24/2024, 10/22/2023, Additional history exists COVID-19 Vaccine (7 - Pfizer risk 2023- season) 2024 02/05/2024, 01/20/2022, 08/01/2021, Additional history exists Influenza Vaccine (#1) 2024 , 02/16/2023, 01/02/2022, Additional history exists Cholesterol Screening (Lipid Panel) 02/23/2025 02/24/2024, 12/29/2022 Diabetes: Annual GFR (Glomerular Filtration Rate) 10/05/2025 10/05/2024, 02/24/2024, 09/21/2023, Additional history exists Hypertension/CHF/CAD Annual BMP Blood Test 10/05/2025 10/05/2024, 02/24/2024, 09/21/2023, Additional history exists DTaP,Tdap,and Td Vaccines (2 - Td or Tdap) 06/29/2028 06/29/2018 Pneumococcal Vaccine: 50+ Years Completed 12/19/2019, 06/29/2018 RSV Immunization Adult Patients Completed 05/04/2023 HIB Vaccines Aged Out No longer eligi ble based on patient's age to complete this topic HPV Vaccines Aged Out No longer eligi ble based on patient's age to complete this topic Hepatitis A Vaccines Aged Out No long er eligible based on patient's age to complete this topic Hepatitis B Vaccines Aged Out No long er eligible based on patient's age to complete this topic IPV Vaccines Aged Out No longer eligi ble based on patient's age to complete this topic MMR Vaccines Aged Out No longer eligi ble based on patient's age to complete this topic Meningococcal ACWY Vaccine Aged Out N o longer eligible based on patient's age to complete this topic Meningococcal B Vaccine Aged Out No l onger eligible based on patient's age to complete this topic RSV Immunization Patients Under 20 months Aged Out No longer eligible based on patient's age to complete this topic Varicella Vaccines Aged Out No longer eligible based on patient's age to complete this topic Procedures Procedure Name Priority Date/Time Associated Diagnosis Comments HEPATIC FUNCTION PANEL Routine 11/07/2024 1:56 PM EDT Hyperlipidemia, unspecified hyperlipidemia type BUN Routine 10/05/2024 2:56 PM EDT Primary hypertension Stage 3b chronic kidney disease (CMS/HCC V24, CMS/HCC V28) Type 2 diabetes mellitus with diabetic nephropathy, without long-term current use of insulin (CMS/HCC V24, CMS/HCC V28) CREATININE, SERUM Routine 10/05/2024 2:5 6 PM EDT Primary hypertension Stage 3b chronic kidney disease (CMS/HCC V24, CMS/HCC V28) Type 2 diabetes mellitus with diabetic nephropathy, without long-term current use of insulin (CMS/HCC V24, CMS/HCC V28) ELECTROLYTE PANEL Routine 10/05/2024 2:5 6 PM EDT Primary hypertension Stage 3b chronic kidney disease (CMS/HCC V24, CMS/HCC V28) Type 2 diabetes mellitus with diabetic nephropathy, without long-term current use of insulin (CMS/HCC V24, CMS/HCC V28) PHOSPHORUS Routine 10/05/2024 2:56 PM EDT Primary hypertension Stage 3b chronic kidney disease (CMS/HCC V24, CMS/HCC V28) Type 2 diabetes mellitus with diabetic nephropathy, without long-term current use of insulin (CMS/HCC V24, CMS/HCC V28) PROTEIN AND CREATININE WITH RATIO, URINE Routine 10/05/2024 2:56 PM EDT Primary hypertension Stage 3b chronic kidney disease (CMS/HCC V24, CMS/HCC V28) Type 2 diabetes mellitus with diabetic nephropathy, without long-term current use of insulin (CMS/HCC V24, CMS/HCC V28) PARATHYROID HORMONE INTACT Routine 10/05/2024 2:56 PM EDT Primary hypertension Stage 3b chronic kidney disease (CKD) (CMS/HCC V24, CMS/HCC V28) Type 2 diabetes mellitus without complication, without long-term current use of insulin (CMS/HCC V24, CMS/HCC V28) CALCIUM Routine 10/05/2024 2:56 PM EDT Primary hypertension Stage 3b chronic kidney disease (CKD) (CMS/HCC V24, CMS/HCC V28) Type 2 diabetes mellitus without complication, without long-term current use of insulin ([facility] V24, [facility] V28) HEMOGLOBIN A1C Routine 08/16/2024 3:22 PM EDT Type 2 diabetes mellitus with stage 4 chronic kidney disease, without long-term current use of insulin ([facility] V24, [facility] V28) LIPID PANEL WITH REFLEX TO DIRECT LDL Routine 02/24/2024 10:05 AM EST Type 2 diabetes mellitus with ESRD (end-stage renal disease) ([facility] V24, [facility] V28) Chronic kidney disease, stage IV (severe) ([facility] V24, [facility] V28) DIABETES EYE EXAM Routine 11/09/2023 URINE ALBUMIN CREATININE RATIO Routine 08/10/2023 FALLS RISK ASSESSMENT Routine 06/14/2023 DEPRESSION SCREENING Routine 02/16/2023 from Last 3 Months or Most Recently Relevant to Health Maintenance Results * (ABNORMAL) Hepatic function panel (11/07/2024 1:56 PM EDT) Total Protein 6.6 6.0 - 8.0 g/dL LAB CHEMISTRY METHOD 11/07/2024 5:[address] [facility] Albumin 3.5 3.2 - 5.0 g/dL LAB CHEMISTRY METHOD 11/07/2024 5:[address] [facility] Total Bilirubin 0.5 0.0 - 1.4 mg/dL LAB CHEMISTRY METHOD 11/07/2024 5:[address] [facility] Bilirubin, Direct 0.1 0.0 - 0.3 mg/dL LAB CHEMISTRY METHOD 11/07/2024 5:[address] [facility] Bilirubin, Indirect 0.4 0.0 - 1.1 mg/dL LAB CHEMISTRY METHOD 11/07/2024 5:[address] [facility] ALT (SGPT) 28 10 - 60 unit/L LAB CHEMISTRY METHOD 11/07/2024 5:[address] [facility] AST (SGOT) 22 10 - 42 unit/L LAB CHEMISTRY METHOD 11/07/2024 5:[address] [facility] Alkaline Phosphatase 125(H) 42 - 121 unit/L LAB CHEMISTRY METHOD 11/07/2024 5:[address] [facility] Blood Venous blood specimen / Unknown Venipuncture / Unknown 11/07/2024 1:56 PM EDT 11/07/2024 1:56 PM EDT Danelle Reeves NP LAB BLOOD ORDERABLES Final R esult Performing Organization Address City/[facility]/ZIP Co de Phone Number [facility] [address] [place] [address], * (ABNORMAL) Protein and creatinine with ratio, urine (10/05/2024 2:56 PM EDT) Protein, Urine 58 mg/dL LAB CHEMISTRY METHOD 10/05/2024 8:[address] [facility] Prot/Creat, Ur 0.34(H) <=0.20 mg/mg creat LAB CHEMISTRY METHOD 10/05/2024 8:[address] [facility] Creatinine, Urine 171.0 mg/dL LAB CHEMISTRY METHOD 10/05/2024 8:[address] [facility] Urine Urine specimen obtained by clean catch procedure / Unknown Non-blood Collection / Unknown 10/05/2024 2:56 PM EDT 10/05/2024 2:57 PM EDT Celio Tipton MD LAB URINE ORDERABLES Final Resu lt [facility] [address] [place] [address], [place] [phone] * (ABNORMAL) Creatinine (10/05/2024 2:56 PM EDT) [facility] Creatinine 2.21(H) 0.70 - 1.30 mg/dL LAB CHEMISTRY METHOD 10/05/2024 6:[address] [facility] eGFR 29(L) >=60 mL/min/1. 73m2 LAB CHEMISTRY METHOD 10/05/2024 6:[address] [facility] Comment:Calculation based on the Chronic Kidney Disease Epidemiology Collaboration (CKD-EPI) equation refit without adjustment for race. Blood Venous blood specimen / Unknown Venipuncture / Unknown 10/05/2024 2:56 PM EDT 10/05/2024 2:57 PM EDT us Celio Tipton MD LAB BLOOD ORDERABLES Final Resu lt [facility] [address] [place] [address], [place] [phone] * (ABNORMAL) BUN (10/05/2024 2:56 PM EDT) [facility] BUN 31(H) 5 - 25 mg/dL LAB CHEMISTRY METHOD 10/05/2024 6:[address] [facility] Blood Venous blood specimen / Unknown Venipuncture / Unknown 10/05/2024 2:56 PM EDT 10/05/2024 2:57 PM EDT us Celio Tipton MD LAB BLOOD ORDERABLES Final Resu lt [facility] [address] [place] [address], [place] [phone] * Phosphorus (10/05/2024 2:56 PM EDT) Phosphorus 2.9 2.5 - 4.5 mg/dL LAB CHEMISTRY METHOD 10/05/2024 6:[address] [facility] Blood Venous blood specimen / Unknown Venipuncture / Unknown 10/05/2024 2:56 PM EDT 10/05/2024 2:57 PM EDT us Celio Tipton MD LAB BLOOD ORDERABLES Final Resu lt Performing Organization Address City/[facility]/ZIP Co de Phone Number [facility] [address] [place] [address], [place] [phone] * Parathyroid hormone intact (10/05/2024 2:56 PM EDT) PTH 81.7 18.5 - 88.0 pcg/mL LAB CHEMISTRY METHOD 10/05/2024 7:[address] [facility] Blood Venous blood specimen / Unknown Venipuncture / Unknown 10/05/2024 2:56 PM EDT 10/05/2024 2:57 PM EDT us Celio Tipton MD LAB BLOOD ORDERABLES Final Resu lt Performing Organization Address [facility] de Phone Number [facility] [address] [place] [address], [place] [phone] * Calcium (10/05/2024 2:56 PM EDT) Calcium 8.6 8.5 - 10.5 mg/dL LAB CHEMISTRY METHOD 10/05/2024 6:[address] [facility] Blood Venous blood specimen / Unknown Venipuncture / Unknown 10/05/2024 2:56 PM EDT 10/05/2024 2:57 PM EDT us Celio Tipton MD LAB BLOOD ORDERABLES Final Resu lt Performing Organization Address City/[facility]/ZIP Co de Phone Number [facility] [address] [place] [address], [place] [phone] * Electrolyte panel (10/05/2024 2:56 PM EDT) [facility] Sodium 141 133 - 145 mmol/L LAB CHEMISTRY METHOD 10/05/2024 6:[address] [facility] Potassium 4.0 3.5 - 5.5 mmol/L LAB CHEMISTRY METHOD 10/05/2024 6:[address] [facility] Chloride 109 96 - 110 mmol/L LAB CHEMISTRY METHOD 10/05/2024 6:[address] [facility] CO2 26 21 - 32 mmol/L LAB CHEMISTRY METHOD 10/05/2024 6:[address] [facility] Anion Gap 6 3 - 11 LAB CHEMISTRY METHOD 10/05/2024 6:[address] [facility] Blood Venous blood specimen / Unknown Venipuncture / Unknown 10/05/2024 2:56 PM EDT 10/05/2024 2:57 PM EDT Celio Tipton MD LAB BLOOD ORDERABLES Final Resu lt [facility] [address] [place] [address], [place] [phone] * (ABNORMAL) Hemoglobin A1c (08/16/2024 3:22 PM EDT) [facility] Hemoglobin A1C 6.9(H) <6.5 % LAB CHEMISTRY METHOD 08/16/2024 9:[address] [facility] Mean Bld Glu Estim. 151 mg/dL LAB CHEMISTRY METHOD 08/16/2024 9:[address] [facility] Blood Venous blood specimen / Unknown Venipuncture / Unknown 08/16/2024 3:22 PM EDT 08/16/2024 3:22 PM EDT Roberta ABDI LAB BLOOD ORDERABLES Final Resul t [facility] [address] [place] [address], * Lipid panel with reflex to direct LDL (02/24/2024 10:05 AM EST) Cholesterol 115 0 - 200 mg/dL LAB CHEMISTRY METHOD 02/24/2024 4:[address] [facility] Triglycerides 100 0 - 150 mg/dL LAB CHEMISTRY METHOD 02/24/2024 4:[address] [facility] HDL 48 >=40 mg/dL LAB CHEMISTRY METHOD 02/24/2024 4:[address] [facility] LDL Calculated 47 0 - 100 mg/dL LAB CHEMISTRY METHOD 02/24/2024 4:[address] [facility] VLDL Cholesterol Brady 20 mg/dL LAB CHEMISTRY METHOD 02/24/2024 4:[address] [facility] Non HDL Chol. (LDL+VLDL) 67 <145 mg/dL LAB CHEMISTRY METHOD 02/24/2024 4:[address] [facility] Chol/HDL Ratio 2.4 0.0 - 4.4 LAB CHEMISTRY METHOD 02/24/2024 4:[address] [facility] Blood Venous blood specimen / Unknown Venipuncture / Unknown 02/24/2024 10:05 AM EST 02/24/2024 10:05 AM EST Mj Hubbard MD LAB BLOOD ORDERABLES Mariela sabiha Result [facility] [address] [place] [address], [place] [phone] * Hm Diabetes Eye Exam (11/09/2023) Diabetes: Annual Retina Eye Exam abstracted us Historical Provider HEALTH MAINTENANCE Final Result * Urine Albumin Creatinine Ratio (08/10/2023) Urine Albumin Creatinine Ratio abstracted Historical Provider HEALTH MAINTENANCE Final Result * Falls Risk Assessment (06/14/2023) Falls Risk Assessment abstracted [facility] Provider HEALTH MAINTENANCE Final Result * Depression Screening (02/16/2023) HM Depression Screening abstracted Historical Provider HEALTH MAINTENANCE Final Result from Last 3 Months or Most Recently Relevant to Health Maintenance Insurance MEDICARE [facility] Advance Directives Documents on File Type Date Recorded 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 Health Care Decision (hx) 07/15/2020 AD MEDELLIN DIRECTIVE Health Care Decision (hx) 07/15/2020 AD MEDELLIN DIRECTIVE Health Care Decision (hx) 07/15/2020 AD MEDELLIN DIRECTIVE Health Care Decision (hx) 07/15/2020 AD MEDELLIN DIRECTIVE Health Care Decision (hx) 07/15/2020 AD MEDELLIN DIRECTIVE Health Care Decision (hx) 07/15/2020 AD MEDELLIN DIRECTIVE Health Care Decision (hx) 07/15/2020 AD MEDELLIN DIRECTIVE Health Care Decision (hx) 07/15/2020 AD MEDELLIN DIRECTIVE Health Care Decision (hx) 07/15/2020 AD MEDELLIN DIRECTIVE Health Care Decision (hx) 07/15/2020 AD MEDELLIN DIRECTIVE Health Care Decision (hx) 07/15/2020 AD MEDELLIN DIRECTIVE Health Care Decision (hx) 07/15/2020 AD MEDELLIN DIRECTIVE Health Care Decision (hx) 07/15/2020 AD MEDELLIN DIRECTIVE Health Care Decision (hx) 07/15/2020 AD MEDELLIN DIRECTIVE Care Teams Corn Grinder Relationship Specialty Start Date End Date Estefania Lozano MD [address] [place] [phone] PCP - General Internal Medicine 11/07/24
--- OUTSIDE RECORDS SUMMARY | 2024-12-18 15:48 | XMS_ITS | Clinical Summary ---
[facility] Organization [facility] Address [address] [place] [address] Care Team Providers Care Crosstie Inspector Name Role Phone Mj Hubbard MD Primary Care Provider [phone] Allergies Active Allergy Reactions Criticality Noted Date Comments Amoxicillin 01/07/2022 Quinapril 01/07/2022 Medications Medication Sig Dispensed Refills Start Date End Date Status acetaminophen-codeine (TYLENOL #3) 300-30 MG per tablet Take 1 tablet by mouth every 4 (four) hours as needed for pain. 0 Active metoprolol tartrate (LOPRESSOR) 50 MG tablet Take by mouth 2 (two) times a day. 0 Active folic acid (FOLVITE) tablet 1 mg Take 1 tablet (1 mg total) by mouth daily. 0 Active cetirizine (ZyrTEC) 10 MG tablet Take 1 tablet (10 mg total) by mouth daily. 0 Active amLODIPine (NORVASC) tablet 5 mg Take 1 tablet (5 mg total) by mouth daily. 0 Active atorvastatin (LIPITOR) tablet 40 mg Take 1 tablet (40 mg total) by mouth daily. 0 Active vitamin B-12 (CYANOCOBALAMIN) tablet 1000 mcg Take 1 tablet (1,000 mcg total) by mouth daily. 0 Active furosemide (LASIX) 20 MG tablet Take 1 tablet (20 mg total) by mouth 2 (two) times a day. 0 Active donepezil (ARICEPT) 10 MG tablet Take 1 tablet (10 mg total) by mouth every night at bedtime. 0 Active liraglutide (VICTOZA) injection 18 mg/3 mL Inject under the skin daily. 0 Active metFORMIN (GLUCOPHAGE) tablet 500 mg Take 1 tablet (500 mg total) by mouth 2 (two) times a day with meals. 0 Active aspirin EC 81 MG tablet Take 1 tablet (81 mg total) by mouth daily. 0 Active memantine (NAMENDA) 10 MG tablet Take 1 tablet (10 mg total) by mouth 2 (two) times a day. 0 Active glipiZIDE (GLUCOTROL XL) ER 24 hr tablet 2.5 mg Take 1 tablet (2.5 mg total) by mouth daily. 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 Social History Tobacco Use Types Packs/Day Years Used Date Smoking Tobacco: Never Assessed Sex and Gender Information Value Date Recorded Sex Assigned at Not on file Gender Identity Not on file Sexual Orientation Not on file Job Start Date Occupation Industry Not on file Not on file Not on file Last Filed Vital Signs Vital Sign Reading Time Taken Comments Blood Pressure 101/82 01/07/2022 11:44 AM EDT Pulse 64 01/07/2022 11:44 AM EDT Temperature 36.4 C (97.5 F) 01/07/2022 11:44 AM EDT Respiratory Rate - - Oxygen Saturation 100% 01/07/2022 11:44 AM EDT Inhaled Oxygen Concentration - - Weight 92.5 kg (204 lb) 01/07/2022 11:44 AM EDT Height 170.2 cm (5' 7 ) 01/07/2022 11:44 AM EDT Body Mass Index 31.95 01/07/2022 11:44 AM EDT Plan of Treatment Health Maintenance Due Date Last Done Comments COVID-19 Vaccine (#1) 03/08/1946 Depression Screening 1957 Preventative Health Evaluation 09/05/1961 Shingrix-Zoster Vaccine (1 o f 2) 09/05/1993 Fall Risk Assessment 09/05/2008 RSV Adult > 60+ Yrs or (1 - 1-dose 75+ series) 09/05/2018 Influenza Vaccine (#1) 2024 2, 01/24/2020, 12/23/2016 DTap / Tdap / Td (2 - Td or Tdap) 06/29/2028 06/29/2018 Pneumococcal Vaccine Completed 12/19/2019, 06/29/2018 Hepatitis B Vaccines Aged Out No long er eligible based on patient's age to complete this topic RSV Ped < 20 months Aged Out No longe r eligible based on patient's age to complete this topic Care Teams Crosstie Inspector Relationship Specialty Start Date End Date Mj Hubbard MD [address] [place] [address] PCP - General Internal Medicine 10/06/21
--- OUTSIDE RECORDS SUMMARY | 2024-12-18 15:48 | XMS_ITS ---
Author Name [facility] Organization Unknown Care Team Organization Name Specialty Phone Email Start Date End Da te [facility] 11/29/2024 [facility] Mj Hubbard Primary Care 02/17/2022 11/29/2023
== END 2024-12-18 14:49 | disposition home or self-care (01) ==
LOC: HO.HSM 13:34
PROVIDERS: PCP Internal Medicine; Visit Provider Registered Nurse
DX: G31.84 Mild cognitive impairment of uncertain or unknown etiology (principal)
CPT/HCPCS: 99214

== ENCOUNTER → 2024-12-18 13:34 | Outpatient (BNVA) | payer MEDICARE, SELFPAY | PROVIDERS: PCP Internal Medicine; Visit Provider Registered Nurse | DX: G31.84 Mild cognitive impairment of uncertain or unknown etiology (principal); I10 Essential (primary) hypertension | CPT/HCPCS: 99212 ==